=== PATIENT | female | born 1965 | race Two or more races ===

== ENCOUNTER 2018-06-09 07:57 | Outpatient (CLI) | payer OTHER | END 2018-06-09 08:02 | disposition home or self-care (01) | LOC: SONOGRAMA 07:57 | DX: E04.2 Nontoxic multinodular goiter (principal) ==

== ENCOUNTER 2019-08-09 07:34 | Outpatient (CLI) | payer OTHER | END 2019-08-09 07:36 | disposition home or self-care (01) | LOC: SONOGRAMA 07:34 | DX: E04.1 Nontoxic single thyroid nodule (principal) ==

== ENCOUNTER → 2021-03-06 | Outpatient (CLI) | payer OTHER | END | disposition home or self-care (01) | LOC: PPH VACUNA | DX: Z23 Encounter for immunization (principal) ==